=== PATIENT | female | born 1960 | race Caucasian/White ===

== ENCOUNTER 2022-04-02 07:42 | Day surgery (SDC) | payer BC ==
[2022-04-01 09:16] VITALS: BMI 51.0
--- NOTE | 2022-04-02 07:40 | P.GSHP ---
History of Present Illness H&P Date: 04/02/22 CHIEF COMPLAINT: GERD and colon screen HISTORY OF PRESENT ILLNESS: The patient is a 61-year-old female who presents with gastroesophageal reflux disease and need for colon screen. Upper and lower endoscopy were offered for further evaluation and management. PAST MEDICAL HISTORY: Please see list. PAST SURGICAL HISTORY: Please see list. MEDICATIONS: Please see list. ALLERGIES: Please see list. SOCIAL HISTORY: No illicit drug use FAMILY HISTORY: No reports of Crohn disease or ulcerative colitis. REVIEW OF ORGAN SYSTEMS: CONSTITUTIONAL: No reports of fevers or chills. GI: Denies any blood in stools or constipation. PHYSICAL EXAM: VITAL SIGNS: Stable GENERAL: Well-developed pleasant in no acute distress. HEENT: No scleral icterus. Extraocular movements grossly intact. Moist buccal mucosa. NECK: Supple without lymphadenopathy. CHEST: Unlabored respirations. Equal bilateral excursions. CARDIOVASCULAR: Regular rate and rhythm. Distal 2+ pulses. ABDOMEN: Soft, nondistended. MUSCULOSKELETAL: No clubbing, cyanosis, or edema. ASSESSMENT: 1. Gastroesophageal reflux disease 2. Colon screen. PLAN: 1. Recommend proceeding with an upper and lower endoscopy Past Medical History Past Medical History: Asthma, GERD/Reflux, Hypertension, Osteoarthritis (OA), Thyroid Disorder Additional Past Medical History / Comment(s): PAST HISTORY -HIGH BLOOD PRESSURE, MIGRAINE HEADACHE, History of Any Multi-Drug Resistant Organisms: None Reported Past Surgical History: Joint Replacement, Orthopedic Surgery, Tubal Ligation, Uterine Ablation Additional Past Surgical History / Comment(s): TOTAL LEFT KNEE , TOTAL RIGHT KNEE. RT WRIST , THYROID SURGERY. COLONOSCOPY. EGD Past Anesthesia/Blood Transfusion Reactions: No Reported Reaction Smoking Status: Former smoker - Past Family History Father Family Medical History: Cancer, COPD, Hypertension Mother Family Medical History: Respiratory Disorder, Seizure Disorder Medications and Allergies Home Medications Medication Instructions Recorded Confirmed Type Albuterol Sulfate [Ventolin HFA] 1 - 2 puff INHALATION Q6H PRN 08/27/14 04/01/22 History Levothyroxine Sodium [Synthroid] 150 mcg PO DAILY 08/27/14 04/01/22 History Mometasone Furoate [Asmanex] 1 - 2 puff INHALATION DAILY PRN 08/27/14 04/01/22 History Montelukast [Singulair] 10 mg PO QAM 08/27/14 04/01/22 History calcitrioL [Calcitriol] 0.5 mcg PO DAILY 08/27/14 04/01/22 History Ibuprofen [Motrin] 800 mg PO TID 09/04/14 04/01/22 History Albuterol Nebulized [Ventolin 2.5 mg INHALATION TID 04/01/22 04/01/22 History Nebulized] Pantoprazole Sodium [Protonix] 40 mg PO DAILY 04/01/22 04/01/22 History Torsemide [Demadex] 10 mg PO DAILY 04/01/22 04/01/22 History Allergies Allergy/AdvReac Type Severity Reaction Status Date / Time Penicillins Allergy Rash/Hives Verified 04/01/22 08:23
[~2022-04-02 07:42] MED LIST: LIDOCAINE 1% (10MG/ML) FOR IV START INTRADERMA PRN
[2022-04-02] MEDS: LACTATED RINGERS 1,000 ML IV SCH ×2 (08:29→08:59)
[2022-04-02 08:33] VITALS: TEMP 97
[2022-04-02] MEDS ORDERED: MIDAZOLAM 2 MG/2 ML VIAL ONE (09:00)
[2022-04-02] MEDS ORDERED: fentaNYL (PF) 50 MCG/ML 2 ML AMP ONE (09:00)
[2022-04-02] MEDS ORDERED: LIDOCAINE 2% INJ 20 MG/ML (2 ML VIAL) ONE (09:00)
[2022-04-02] MEDS ORDERED: PROPOFOL 10 MG/ML 20 ML VIAL IV ONE (09:00)
[2022-04-02 09:42] VITALS: BP 133/69; PULSE 63; RESP 16
--- NOTE | 2022-04-02 09:43 | P.PCN ---
Date of Procedure: 04/02/22 Description of Procedure: PREOPERATIVE DIAGNOSIS: Personal history of colon polyps Colonoscopy screening POSTOPERATIVE DIAGNOSIS: Tubular adenoma sigmoid colon Sigmoid diverticulosis Internal hemorrhoids, grade 2 OPERATION: Colonoscopy to the ileocecal valve and appendiceal orifice, cecum Colonoscopy with cold forceps biopsy SURGEON: Milena Rodriguez MD. ANESTHESIA: MAC. INDICATIONS: The patient is an 61-year-old male who presents personal history of colon polyps. Last colonoscopy 5 years. Benefits and risks were described and informed consent was obtained. DESCRIPTION OF PROCEDURE: The patient had undergone Sutab prep. The patient had been brought into the operating room and laid in the left lateral decubitus position. After adequate intravenous sedation, the rectum was examined with 2% lidocaine jelly. External hemorrhoids were encountered. The rectal tone was within normal limits. No lesions were palpated in the rectal vault. An Olympus colonoscope was advanced until the cecum, ileocecal valve and appendiceal orifice were clearly viewed. The prep was fair. Sigmoid diverticulosis was encountered. Colonic polyps were found and removed. No evidence of focal colitis was found. Retroflexion of the scope demonstrated grade 2 internal hemorrhoids without active bleeding or inflammation. The colon was desufflated. The patient had tolerated the procedure well. Withdrawal time was over 6 minutes. FINDINGS: Aronchick preparation quality scale 2 (1-5) Internal hemorrhoids, grade 2 External hemorrhoids, grade 2 No arteriovenous malformations. Sigmoid diverticulosis Removal of 1 polyps: - Cold forceps biopsy at 20 cm from the anal verge, 4 mm polyp, sigmoid colon No focal colitis. RECOMMENDATIONS: Repeat colonoscopy in 3 years, 2024 Plan - Discharge Summary Discharge Rx Participant: No New Discharge Prescriptions: Continue Mometasone Furoate [Asmanex Inhaler] 1 - 2 puff INHALATION DAILY PRN PRN Reason: ASTHMA Levothyroxine Sodium [Synthroid] 150 mcg PO DAILY Albuterol Sulfate [Ventolin HFA] 1 - 2 puff INHALATION Q6H PRN PRN Reason: ASTHMA, SHORTNESS OF BREATH Montelukast [Singulair] 10 mg PO QAM calcitrioL [Calcitriol] 0.5 mcg PO DAILY Ibuprofen [Motrin] 800 mg PO TID Pantoprazole Sodium [Protonix] 40 mg PO DAILY Torsemide [Demadex] 10 mg PO DAILY Albuterol Nebulized [Ventolin Nebulized] 2.5 mg INHALATION TID Discharge Medication List Albuterol Sulfate [Ventolin HFA] 1 - 2 puff INHALATION Q6H PRN 08/27/14 [History] Levothyroxine Sodium [Synthroid] 150 mcg PO DAILY 08/27/14 [History] Mometasone Furoate [Asmanex Inhaler] 1 - 2 puff INHALATION DAILY PRN 08/27/14 [History] Montelukast [Singulair] 10 mg PO QAM 08/27/14 [History] calcitrioL [Calcitriol] 0.5 mcg PO DAILY 08/27/14 [History] Ibuprofen [Motrin] 800 mg PO TID 09/04/14 [History] Albuterol Nebulized [Ventolin Nebulized] 2.5 mg INHALATION TID 04/01/22 [History] Pantoprazole Sodium [Protonix] 40 mg PO DAILY 04/01/22 [History] Torsemide [Demadex] 10 mg PO DAILY 04/01/22 [History] Follow up Appointment(s)/Referral(s): Milena Rodriguez MD [STAFF PHYSICIAN] - 04/07/22 Patient Instructions/Handouts: Hiatal Hernia (DC), Colonoscopy (GEN), Colorectal Polyps (GEN), Diverticulosis Diet (GEN), Diverticulosis (DC) Activity/Diet/Wound Care/Special Instructions: Repeat colonoscopy in 3 years, 2024 Discharge Disposition: HOME SELF-CARE
--- NOTE | 2022-04-02 09:46 | P.PCN ---
Date of Procedure: 04/02/22 Description of Procedure: PREOPERATIVE DIAGNOSIS: Gastroesophageal reflux disease. Morbid obesity. POSTOPERATIVE DIAGNOSIS: Gastroesophageal reflux disease with erosive esophagitis and ulcers Morbid obesity. Gastritis. Diaphragmatic hiatal hernia, paraesophageal OPERATION: Esophagogastroduodenoscopy with biopsies along antrum, esophagus, duodenum SURGEON: Milena Rodriguez MD ANESTHESIA: MAC. INDICATIONS: The patient is a 61-year-old female who presents with reflux disease. Benefits and risks of the procedure were described. Informed consent was obtained. DESCRIPTION: The patient was brought into the endoscopy suite and laid in the left lateral decubitus position. An Olympus gastroscope was passed along the posterior oropharynx down to the distal esophagus where the squamocolumnar junction was encountered at 35 cm from the incisors. The stomach was entered and no bile reflux was found. Additional findings are listed below. Biopsies with cold forceps were obtained of the antrum. The first through third portion of the duodenum was examined. Retroflexion of the scope confirmed Hill grade 3 lower esophageal valve. The squamocolumnar junction demonstrated LA grade B erosive esophagitis. The stomach was desufflated. The patient tolerated the procedure well. FINDINGS: Squamocolumnar junction 35 cm from the incisors. Diaphragmatic hiatus at 38 cm. Hiatal hernia, 3 cm Hill grade 4 lower esophageal valve. LA grade D erosive esophagitis and ulcers Cold biopsies of duodenum Chronic gastritis with biopsy Erosive esophagitis 25-35 cm from the incisors RECOMMENDATIONS: Carafate 1 g 3 times daily with Protonix Recommend hiatal hernia repair
== END 2022-04-02 11:21 | disposition home or self-care (01) ==
LOC: ORWHC2ENDO 07:42
PROVIDERS: ATTEND Surgery Plastic and Reconstructive Surgery
DX: Z12.11 Encounter for screening for malignant neoplasm of colon (principal); K63.5 Polyp of colon; K57.30 Diverticulosis of large intestine without perforation or abscess without bleeding; K64.1 Second degree hemorrhoids; K22.10 Ulcer of esophagus without bleeding; K64.4 Residual hemorrhoidal skin tags; K29.50 Unspecified chronic gastritis without bleeding; K44.9 Diaphragmatic hernia without obstruction or gangrene; K21.00 Gastro-esophageal reflux disease with esophagitis, without bleeding; E66.01 Morbid (severe) obesity due to excess calories; I10 Essential (primary) hypertension; M19.90 Unspecified osteoarthritis, unspecified site; J45.909 Unspecified asthma, uncomplicated; E07.9 Disorder of thyroid, unspecified; Z79.51 Long term (current) use of inhaled steroids; Z79.890 Hormone replacement therapy; Z87.891 Personal history of nicotine dependence; Z79.899 Other long term (current) drug therapy; Z79.1 Long term (current) use of non-steroidal anti-inflammatories (NSAID); Z88.1 Allergy status to other antibiotic agents
CPT/HCPCS: 88305; 45380; 43239; J2250; J3010; J2704; J2001; 88312

== ENCOUNTER → 2022-05-20 | Outpatient (CLI) | payer BC ==
[2022-05-20 15:43] VITALS: BP 159/95; PULSE 102; TEMP 98; BMI 49.9
--- NOTE | 2022-05-20 15:55 | P.HPBAR ---
Bariatric H&P - History & Physicial H&P Date: 05/20/22 History & Physicial: Visit/CC: new patient consult Patient initial contact: Initial weight: Initial weight in pounds: Height: 5 ft 3.5 in Initial BMI: Last weight: Current weight: 129.909 kg Current weight in pounds: 286.40 Current BMI: 49.9 Joseph body weight (based on NIH guidelines): 53.297 kg Excess body weight loss: The patient is a 61 year-old F who presents for Bariatric Assessment. She has BMI 50. Has multiple co-morbidities. Assesment for weight lose described. Will need cardiac risk assessment. Recommend US gallbladder and HIDA scan. Recommend full labs. Labs. CT abd. CT chest due to lung modules. Recommend pulmonary follow up. May need chest xray. Cardiology referral for abnormal EKG. Recommend hiatal hernia repair first. May benefit from gastric bypass due to severe reflux. May need repeat upper endoscopy. Past Medical History Past Medical History: Asthma, GERD/Reflux, Hypertension, Osteoarthritis (OA), Thyroid Disorder Additional Past Medical History / Comment(s): Migraines History of Any Multi-Drug Resistant Organisms: None Reported Past Surgical History: Joint Replacement, Orthopedic Surgery, Tubal Ligation, Uterine Ablation Additional Past Surgical History / Comment(s): LT KNEE SCOPE. RT WRIST SX. THYMUS GLAND REMOVED. COLONOSCOPY. EGD. Left and Right knee replacements Past Anesthesia/Blood Transfusion Reactions: No Reported Reaction Past Psychological History: No Psychological Hx Reported Smoking Status: Former smoker Past Alcohol Use History: None Reported Additional Past Alcohol Use History / Comment(s): STARTED SMOKING AT AGE 19 QUIT AT AGE 24 SMOKED 1/2PPD Past Drug Use History: None Reported Surgical - Exam Vital Signs Temp Pulse BP 98 F 102 H 159/95 05/20/22 15:35 05/20/22 15:35 05/20/22 15:35 Bariatric Checklist Checklist: Plan: Checklist: EGD: 1. Hiatal hernia: 2. H. Pylori: HgbA1c: Vitamin D: Smoking: Never smoker Primary care physician referral: Dr. Ness Psychiatry clearance: Cardiology clearance: Sleep study: Diet journal: VTE risk score: VTE risk level: Rehab needs at discharge:
[2022-05-20 17:27] LABS: INR 0.9 (<1.2); Prothrombin Time 10.1 sec (9.0-12.0)
[2022-05-20 17:28] LABS: Partial Thromboplastin Time 24.1 sec (22.0-30.0)
[2022-05-20 23:12] LABS: HGB 13.2 g/dL (12.0-15.0); MCH 29.3 pg (27.0-32.0); MCHC 32.2 g/dL (32.0-37.0); MCV 91.1 fL (80.0-97.0); Mean Platelet Volume 10.6 fL (9.5-12.2); NRBC Per 100 WBC 0 /100 WBCS (0.0-0.0); Platelet Count 362 X 10*3/uL (140-440); RDW 13.5 % (11.5-14.5); WBC 8.42 X 10*3/uL (4.50-10.00)
[2022-05-20 23:59] LABS: % Iron Saturation 11.71 (12.00-45.00); ALT 20 U/L (8-44); AST 20 U/L (13-35); African American GFR (CKD) 76.7 (60.0-200.0); Albumin 4.5 g/dL (3.8-4.9); Alkaline Phosphatase 68 U/L (41-126); BUN/Creat Ratio 20.73 Ratio (12.00-20.00); Blood Urea Nitrogen 19.2 mg/dL (9.0-27.0); Calcium 8.1 mg/dL (8.7-10.3); Chloride 103 mmol/L (96-109); Globulin 2.5 g/dL (1.6-3.3); Glucose 135 mg/dL (70-110); Iron 48 ug/dL (50-170); Non-African American GFR(CKD) 66.2 (60.0-200.0); Phosphorus 5.9 mg/dL (2.4-5.1); Potassium 4.2 mmol/L (3.5-5.5); Sodium 144 mmol/L (135-145); Total Iron Binding Capacity 412 ug/dL (228-460)
[2022-05-21 00:07] LABS: LDL Cholesterol,Calculated 170.7 mg/dL (0.0-131.0); Prealbumin 32.6 mg/dL (18.0-42.0)
[2022-05-21 13:24] LABS: Zinc, Serum 80 ug/dL (60-130)
[2022-05-22 06:14] LABS: Vitamin A 67 ug/dL (38-106)
== END | disposition home or self-care (01) ==
LOC: BARWHC3 14:29
PROVIDERS: ATTEND Surgery Plastic and Reconstructive Surgery
DX: E66.01 Morbid (severe) obesity due to excess calories (principal); E89.1 Postprocedural hypoinsulinemia; D50.8 Other iron deficiency anemias; D50.9 Iron deficiency anemia, unspecified; K91.2 Postsurgical malabsorption, not elsewhere classified; E44.0 Moderate protein-calorie malnutrition; E44.1 Mild protein-calorie malnutrition; E45 Retarded development following protein-calorie malnutrition; E55.9 Vitamin D deficiency, unspecified; K74.1 Hepatic sclerosis; N19 Unspecified kidney failure; T56.894A Toxic effect of other metals, undetermined, initial encounter
CPT/HCPCS: 84255; 84134; 84425; 80061; 80053; 82607; 82728; 82525; 82746; 83540; 83550; 83735; 84100; 84443; 84590; 84630; 85027; 85610; 85730; 82306; 80323; 83970; 83036; 80307; 99213; G0482

== ENCOUNTER → 2022-07-07 | Outpatient (CLI) | payer BC ==
--- NOTE | 2022-07-07 10:36 | CT ---
EXAMINATION TYPE: CT chest w con CT DLP: 581.9 mGycm, Automated exposure control for dose reduction was used. DATE OF EXAM: 07/07/2022 10:26 AM COMPARISON: None. CLINICAL INDICATION:Female, 61 years old with history of R91.1 lung nodules, K80.20 gallstones, nodul es TECHNIQUE: Multiple axial images were obtained through the chest. Sagittal and coronal reformats were created for review. Contrast used:70cc mL of Isovue 300 with IV Contrast Oral contrast used: none. FINDINGS: LUNGS/ PLEURA:. No evidence of focal consolidation, pneumothorax or pleural effusion. Pulmonary nodules: 4 mm right lower lobe series 4 image 47 AIRWAY: Patent and unremarkable. HEART: The heart is mildly enlarged for size. Mitral valve annular calcifications. MEDIASTINUM: No gross evidence of adenopathy. Moderate hiatal hernia is present. VASCULATURE: No aortic aneurysm. MUSCULOSKELETAL: No acute osseous abnormalities, mild multilevel disc degeneration changes with osteo phyte formation and some disc space narrowing. Scattered facet joint arthropathy. SOFT TISSUES/LYMPH NODES: Unremarkable. LOWER NECK: No significant findings. UPPER ABDOMEN: No significant findings. IMPRESSION: 1. Right lower lobe 4 mm pulmonary nodule. Consider follow-up in 12 months if the patient has risk f actors. 2. No acute thoracic process. 3. Moderate hiatal hernia.
--- NOTE | 2022-07-07 11:41 | US ---
EXAMINATION TYPE: US gallbladder DATE OF EXAM: 07/07/2022 COMPARISON: NONE CLINICAL HISTORY: K80.20 gallstones. Pre bariatric surgery, no symptoms TECHNIQUE: Multiple sonographic images of the right upper quadrant are obtained. FINDINGS: EXAM MEASUREMENTS: Liver Length: 18.5 cm Gallbladder Wall: 0.2 cm CBD: 0.9 cm Right Kidney: 10.8 x 4.4 x 4.5 cm TRANSPLANT SURGEON NOTES:limited due to habitus and bowel gas Pancreas: wnl Liver: heterogeneous and upper limits for size Gallbladder: wnl Evidence for sonographic Crockett's sign: no CBD: wnl Right Kidney: wnl IMPRESSION: 1. Hepatocellular disease commonly relating to hepatic steatosis. 2. No sonographic evidence for cholelithiasis.
== END | disposition home or self-care (01) ==
LOC: RADCTMAIN 09:58
PROVIDERS: ATTEND Surgery Plastic and Reconstructive Surgery
DX: K80.20 Calculus of gallbladder without cholecystitis without obstruction (principal); K44.9 Diaphragmatic hernia without obstruction or gangrene; R91.1 Solitary pulmonary nodule
CPT/HCPCS: 76705; 71260; Q9967

== ENCOUNTER → 2022-07-09 | Outpatient (CLI) | payer BC ==
--- NOTE | 2022-07-09 15:54 | NM ---
Nuclear medicine hepatobiliary scan. HISTORY: Pain. DOSAGE: The patient received Ensure and 4.2 mCi of Technetium 99m Choletec. FINDINGS: There is normal hepatic extraction. The gallbladder is seen by 20 minutes. Ejection fract ion is 82%. IMPRESSION: 1. No evidence of cholecystitis. 2. Ejection fraction 82% correlate clinically.
== END | disposition home or self-care (01) ==
LOC: RADNMMAIN 12:42
PROVIDERS: ATTEND Surgery Plastic and Reconstructive Surgery
DX: K80.20 Calculus of gallbladder without cholecystitis without obstruction (principal); R91.1 Solitary pulmonary nodule
CPT/HCPCS: 78226; A9537

== ENCOUNTER → 2023-06-09 | Outpatient (CLI) | payer BC ==
[2023-06-09 16:32] LABS: Basophils % (A) 1 %; Eosinophils # (A) 0.6 k/uL (0-0.7); Eosinophils % (A) 9 %; HCT 42.8 % (34.0-46.0); Lymphocytes % (A) 31 %; MCH 29.5 pg (25.0-35.0); MCHC 32.6 g/dL (31.0-37.0); MCV 90.5 fL (80.0-100.0); Mean Platelet Volume 7.2; Monocytes # (A) 0.3 k/uL (0-1.0); Monocytes % (A) 5 %; Neutrophils # (A) 3.5 k/uL (1.3-7.7); Neutrophils % (A) 54 %; Platelet Count 352 k/uL (150-450); RBC 4.73 m/uL (3.80-5.40); RDW 13.9 % (11.5-15.5); WBC 6.5 k/uL (3.8-10.6)
[2023-06-09 17:28] LABS: Total Eosinophil Count 579 #EOS/uL (150-300)
[2023-06-10 01:06] LABS: Alternaria alternata IgE <0.10 kU/L; Aspergillus fumagatus IgE <0.10 kU/L; Birch IgE <0.10 kU/L; Cat Epith & Dander IgE 2.22 kU/L; Cladosporian herbarum IgE <0.10 kU/L; Cockroach IgE <0.10 kU/L; Dermato. farinae IgE <0.10 kU/L; Dog Dander IgE 0.17 kU/L; Elm IgE <0.10 kU/L; Maple (Box Elder) IgE <0.10 kU/L; Oak IgE <0.10 kU/L; Ragweed,Common IgE <0.10 kU/L; Red Top (Bentgrass) IgE 0.16 kU/L
== END | disposition home or self-care (01) ==
LOC: LABWHC1 14:56
PROVIDERS: ATTEND Internal Medicine
DX: J45.50 Severe persistent asthma, uncomplicated (principal)
CPT/HCPCS: 36415; 82785; 85008; 85025; 86003